=== PATIENT | female | born 2000 | race Two or more races ===

== ENCOUNTER 2024-03-10 21:16 | Emergency (ER) | payer MEDICAID, SELFPAY ==
[2024-03-10 21:17] VITALS: BMI 28.3
[2024-03-10 21:36] VITALS: BP 131/75; PULSE 115; RESP 18; TEMP 38.1; O2SAT 96
--- NOTE | 2024-03-10 21:44 | XR_ITS ---
Examination: PA lateral chest 2 views Technique: Upright PA lateral chest 2 views Exam date and time: March 10, 2024 2152 hrs. Indications: Coughing sweats dizziness today. Findings: Normal heart size Lungs are clear. The osseous structures are intact Impression: No active disease
--- NOTE | 2024-03-10 21:45 | PD.EDURI ---
Upper Respiratory Inf. RME/HPI General Chief Complaint: Abdominal Pain Stated Complaint: ABD PAIN, VOMITING Time Seen by Provider: 03/10/24 21:29 Source: patient Arrival date/time: 03/10/24 21:16 24-year-old female presents emergency department complaining of cough, sore throat, headache, chills, abdominal pain, and vomiting that all started today. Patient reports sister is currently sick with similar symptoms at home. Limitations: no limitations Related Data Previous Rx's ?Medication ?Instructions ?Recorded acetaminophen 500 mg capsule 500 mg PO Q6H PRN pain #30 caps 03/10/24 ibuprofen 600 mg tablet 600 mg PO Q8H PRN pain #20 tabs 03/10/24 Allergies Allergy/AdvReac Type Severity Reaction Status Date / Time NKA Allergy Unknown Uncoded 02 23:07 Review of Systems Review of Systems Systems Reviewed: All systems reviewed, normal except as documented Constitutional Constitutional: Reports system reviewed and no additional complaints, except as documented, Denies body ache(s), Reports chills, Denies fever(s) and Reports headache(s) Eyes Eyes: Reports system reviewed and no additional complaints, except as documented and Denies change in vision ENT Ears, Nose, Mouth, and Throat: Reports system reviewed and no additional complaints, except as documented, Denies disequilibrium, Denies dizziness, Reports headache(s), Reports sore throat and Denies vertigo Cardiovascular Cardiovascular: Reports system reviewed and no additional complaints, except as documented, Denies chest pain and Denies dyspnea Respiratory Respiratory: Reports system reviewed and no additional complaints, except as documented, Denies chest congestion, Reports cough and Denies dyspnea Gastrointestinal Gastrointestinal: Reports system reviewed and no additional complaints, except as documented, Reports abdominal pain, Denies nausea and Reports vomiting Musculoskeletal Musculoskeletal: Reports system reviewed and no additional complaints, except as documented, Denies abnormal gait and Denies arthralgias Integumentary/Breasts Skin/Breast: Reports system reviewed and no additional complaints, except as documented, Denies erythema, Denies rash and Denies wounds Neurologic Neurologic: Reports system reviewed and no additional complaints, except as documented, Denies abnormal gait, Denies disequilibrium, Denies dizziness, Reports headache(s) and Denies vertigo Past Medical History Social History SMOKING STATUS: Never smoker ED Exam General Limitations: Present no limitations General appearance: Present alert and in no apparent distress Head Head exam: Present atraumatic Eye Eye exam: Present normal appearance, PERRL and EOMI ENT ENT exam: Present normal exam, normal oropharynx and mucous membranes moist Neck Neck exam: Present normal inspection, full ROM and trachea midline Chest Chest inspection: Present normal inspection and symmetric chest wall rise Respiratory Respiratory exam: Present normal lung sounds bilaterally Cardiovascular Cardiovascular exam: Present regular rate, normal rhythm and normal heart sounds Abdominal Exam Abdominal exam: Present soft and normal bowel sounds Extremities Exam Extremities exam: Present normal inspection and full ROM Back Exam Back exam: Present normal inspection and full ROM Neurological Exam Neurological exam: Present alert, oriented X3 and CN II-XII intact Psychiatric Psychiatric exam: Present normal affect and normal mood Skin Skin exam: Present warm, dry, intact and normal color Course Quality Measures none Orders Category Date Time Status Bedside Influenza A&B Antigen Test NOW Care 03/10/24 21:44 Completed XR chest 2V Stat Exams 03/10/24 21:44 Completed HCG Qualitative,Urine Stat Lab 03/10/24 22:12 Completed Strep A Rapid Stat Lab 03/10/24 22:00 Completed Urinalysis, C/S if Indicated Stat Lab 03/10/24 22:12 Completed Acetaminophen Tab [Tylenol ES Tab] Med 03/10/24 21:44 Discontinued 1,000 mg PO X1 ONE Ibuprofen Tab [Motrin Tab] Med 03/10/24 21:44 Discontinued 600 mg PO X1 ONE Vital Signs Vital signs: Vital Signs Temperature 100.6 F H 03/10/24 21:36 Pulse Rate 115 H 03/10/24 21:36 Respiratory Rate 18 03/10/24 21:36 Blood Pressure 131/75 H 03/10/24 21:36 Pulse Oximetry (%) 96 03/10/24 21:36 96% room air within normal limits Upper Respiratory Infection MDM Narrative MDM Narrative:: 24-year-old female presents emergency department complaining of cough, sore throat, headache, chills, abdominal pain, and vomiting that all started today. Patient reports sister is currently sick with similar symptoms at home. Patient appears nontoxic and is hemodynamically stable. Urinalysis was unremarkable. Chest x-ray was negative for any pneumonic infiltrates. Patient influenza positive. Patient discharged ducted to follow-up with primary care provider and return to emergency department for any worsening symptoms or as needed. Patient data External records reviewed:: None Clinical information provided by:: patient Social determinants that could affect healthcare access:: none Patient has the following chronic illnesses:: None How is presenting disease/condition affected by chronic disease/condition?: no chronic disease Evaluation data The following diagnostics were reviewed and interpreted by me:: lab results and radiology exam(s) Lab and/or radiology exams considered but not ordered:: Ordered Interpretation Summary: Interpreted by me Medications / Prescriptions Medications or Prescriptions considered but not ordered:: Ordered Medication administrations:: Medication Administration History Discontinued Medications Acetaminophen (Acetaminophen 500 Mg Tablet) 1,000 mg PO X1 ONE Stop: 03/10/24 21:45 Last Admin: 03/10/24 21:59 Dose: 1,000 mg Documented By: OA Ibuprofen (Ibuprofen Tab 600 Mg Tablet) 600 mg PO X1 ONE Stop: 03/10/24 21:45 Last Admin: 03/10/24 22:00 Dose: 600 mg Documented By: OA Given Consultations Consultation(s) initiated? (list below): No Diagnosis Upper Respiratory Differential Diagnosis: upper respiratory infection, sinusitis, viral infection, bronchitis, influenza and pharyngitis Most likely diagnosis given after review of the tests above:: Influenza Admission Indicated Admission indicated?: not indicated Admission Request Was there a request for admission?: No Disposition Plan Disposition Plan: Discharge Discharge Attestation Discharge Attestation: The patient and all family members were given an opportunity to ask questions and understood the discharge instructions. Discharge instructions specifically effects, indications for sooner follow up or return to the emergency department, and the expected course of current diagnosis. Patient condition: Stable Discharge Plan Plan Patient Disposition: HOME (Self Care) Disposition Comment: Stable Prescriptions/Referrals Prescriptions/Med Rec: New acetaminophen 500 mg capsule 500 mg PO Q6H PRN (Reason: pain) Qty: 30 0RF ibuprofen 600 mg tablet 600 mg PO Q8H PRN (Reason: pain) Qty: 20 0RF Referrals: Temporary Provider,ED [Physician] - In 1 week Problem List Clinical Impression: Influenza Patient/Caregiver Discharge Instructions Discharge Activity: activity as tolerated Education Materials: ED Influenza (Adult) Additional Instructions: Drink plenty of fluids and get plenty of rest. Take Tylenol or ibuprofen as needed for fever or pain. Follow-up with primary care provider in 2 to 3 days. Return to emergency department for any worsening symptoms or as needed. Print Language: Frisian Stand Alone Forms: Marilyn Award Info., Patient Portal Info Letter PA/FORMULA ROOM WORKER Supervising Physician PA/FORMULA ROOM WORKER Supervising Physician: Dr. Cantu
[2024-03-10 21:59] VITALS: TEMP 38.1
[2024-03-10] MEDS: ACETAMINOPHEN 500 MG TABLET 1000 MG PO (21:59)
[2024-03-10 22:00] VITALS: TEMP 38.1
[2024-03-10] MEDS: IBUPROFEN TAB 600 MG TABLET PO (22:00)
[2024-03-10 22:21] LABS: Collection Type, Urine Clean Catch
[2024-03-10 22:25] LABS: Strep A Rapid Negative (Negative)
[2024-03-10 22:31] LABS: Bilirubin,Urine Negative (Negative); Blood,Urine Negative (Negative); Clarity,Urine Clear (Clear/Hazy); Color,Urine Yellow (Lt Yel-Yel); Culture Indicated,Urine Not Indicated; Glucose, Urine Negative (Negative); Ketones,Urine Negative (Negative); Leukocyte Esterase,Urine Negative (Negative); Nitrite,Urine Negative (Negative); Protein,Urine 1+ (Neg - Trace); RBC,Urine 3 /hpf (0-3); Specific Gravity,Urine 1.027 (1.001-1.035); Squamous Epithelial Cell,Urine 2 /hpf (0-5); Urobilinogen,Urine Negative mg/dL (0.0-1.0); WBC,Urine 2 /hpf (0-5)
[2024-03-10 22:42] LABS: HCG Qualitative,Urine Negative
[2024-03-10 23:12] VITALS: TEMP 36.6
[2024-03-10 23:13] VITALS: BP 122/77; PULSE 89
== END 2024-03-10 23:13 | disposition home or self-care (01) ==
PROVIDERS: Emergency Provider Emergency Medicine; PCP Family Medicine
DX: J11.1 Influenza due to unidentified influenza virus with other respiratory manifestations (principal)
CPT/HCPCS: 71046; 81001; 81025; 87400; 87651; 99283; A9270